=== PATIENT | male | born 1965 | race Caucasian/White ===

== ENCOUNTER 2020-06-15 10:44 | Emergency (ER) | payer OTHER ==
[~2020-06-15] VITALS: Ht 175.3 cm; Wt 158.8 kg
[2020-06-15] MEDS ORDERED: LOSARTAN POTAS100 M1 PO (11:09)
[2020-06-15] MEDS ORDERED: HYDCHL25 PO (11:09)
[2020-06-15] MEDS ORDERED: METF500C PO (11:10)
[2020-06-15] MEDS ORDERED: ONE DAILY MUL400 MCG PO (11:14)
[2020-06-15] MEDS ORDERED: GLIP5 PO (11:14)
[2020-06-15] MEDS ORDERED: ASCO500 PO (11:15)
[2020-06-15] MEDS ORDERED: Vitamin D2000 UNIT (11:15)
[2020-06-15] MEDS ORDERED: L-Lysine500 M1 PO (11:16)
[2020-06-15] MEDS ORDERED: ASPIR 8181 M1 PO (11:16)
[2020-06-15] MEDS ORDERED: FISH OIL 1,2001 EAC4 PO (11:17)
[2020-06-15] MEDS ORDERED: SYMBICORT 160-4.6 GM (11:18)
[2020-06-15] MEDS ORDERED: Loratadine10 MG PO (11:18)
== END 2020-06-15 12:04 | disposition home or self-care (01) ==
LOC: ER 10:44
DX: I83.891 Varicose veins of right lower extremity with other complications (principal); Z79.84 Long term (current) use of oral hypoglycemic drugs; Z79.82 Long term (current) use of aspirin; Z79.899 Other long term (current) drug therapy
CPT/HCPCS: 99282

== ENCOUNTER → 2021-05-04 | Outpatient (CLI) | payer OTHER ==
[~2021-05-04] MED LIST: ASCO500 PO; ASPIR 8181 M1 PO; FISH OIL 1,2001 EAC4 PO; GLIP5 PO; HYDCHL25 PO; L-Lysine500 M1 PO; LOSARTAN POTAS100 M1 PO; Loratadine10 MG PO; METF500C PO; ONE DAILY MUL400 MCG PO; SYMBICORT 160-4.6 GM; Vitamin D2000 UNIT
== END | disposition home or self-care (01) ==
LOC: LAB SHORT 11:20
DX: E11.21 Type 2 diabetes mellitus with diabetic nephropathy (principal)
CPT/HCPCS: 82043

== ENCOUNTER → 2021-09-29 | Outpatient (CLI) | payer OTHER | LOC: LAB SHORT 15:50 | DX: E11.21 Type 2 diabetes mellitus with diabetic nephropathy (principal) | CPT/HCPCS: 82043 ==

== ENCOUNTER 2022-01-29 02:14 | Inpatient (IN) | payer OTHER ==
[~2022-01-29] VITALS: Ht 172.7 cm; Wt 166.0 kg
[~2022-01-29 02:14] MED LIST changes: -Vitamin D2000 UNIT; +Vitamin D2000 UNIT PO
[2022-01-29 02:43] LABS: BASOPHILS ABSOLUTE AUTO 0.02 K/mm3 (0.00-0.23); BASOPHILS PERCENT AUTO 0 % (0-2); EOSINOPHILS ABSOLUTE AUTO 0.07 K/mm3 (0.00-0.68); EOSINOPHILS PERCENT AUTO 1 % (0-6); Hematocrit 42.7 % (37.0-53.0); Hemoglobin 14.7 g/dL (13.5-17.5); IMMATURE GRAN ABSOLUTE AUTO 0.02 K/mm3 (0.00-0.10); IMMATURE GRAN PERCENT AUTO 0 % (0-1); LYMPHOCYTES ABSOLUTE AUTO 1.08 K/mm3 (0.84-5.20); LYMPHOCYTES PERCENT AUTO 18 % (21-46); MONOCYTES ABSOLUTE AUTO 0.76 K/mm3 (0.16-1.47); MONOCYTES PERCENT AUTO 12 % (4-13); Mean Corpuscular HGB 31.5 pg (26.0-34.0); Mean Corpuscular HGB Conc 34.4 g/dL (31.5-36.5); Mean Corpuscular Volume 92 fL (80-100); Mean Platelet Volume 10.8 fL (9.1-12.4); NEUTROPHILS PERCENT AUTO 68 % (41-73); Platelet Count 205 K/mm3 (150-400); RDW Coefficient Variation 12.3 % (11.7-14.2); RDW Standard Deviation 41.3 fL (35.1-46.3); Red Blood Cell Count 4.66 M/mm3 (4.30-5.90); White Blood Cell Count 6.15 K/mm3 (4.00-11.30)
[2022-01-29 03:01] LABS: Alanine Aminotransfer (ALT/SGP 73 U/L (12-78); Albumin, Blood 3.5 g/dL (3.4-5.0); Alk Phos 50 U/L (50-136); Anion Gap 10 mmol/L (6-16); Aspartate Aminotrans (AST/SGOT 46 U/L (12-37); Bilirubin, Total 0.9 mg/dL (0.1-1.0); Blood Urea Nitrogen 12 mg/dL (8-24); Bun/Creatinine Ratio 12.6 (12.0-20.0); CO2, Blood 29 mmol/L (21-32); Calcium, Blood 8.3 mg/dL (8.5-10.1); Chloride, Blood 96 mmol/L (98-108); Creatinine, Blood 0.96 mg/dL (0.60-1.20); Globulin, Blood 3.5 g/dL (2.2-4.0); Glomerular Filtration Rate >60 (60-); Glucose, Blood 243 mg/dL (70-99); Potassium, Blood 3.3 mmol/L (3.5-5.5); Sodium, Blood 135 mmol/L (136-145)
[2022-01-29 06:16] LABS: Magnesium, Blood 1.9 mg/dL (1.6-2.4)
[2022-01-29 10:55] LABS: Influenza A, PCR NEGATIVE (NEGATIVE); Influenza B, PCR NEGATIVE (NEGATIVE); Resp Syncytial Virus, PCR NEGATIVE (NEGATIVE); SARS-Cov-2 (COVID-19) PCR, MMC NEGATIVE (NEGATIVE)
--- NOTE | 2022-01-29 11:45 | NUR ---
PICTURES TAKEN BLE. LEFT WITH SM OPENING LATERAL AND ANTERIOR POSSIBLY DUE TO EDEMA DRAINAGE. CLEANED, BACITRACIN( PATIENT STS HAS USED BEFORE), NONADHERING DRESSING, KERLIX, COBAN AND TUBEX GAUZE.TOLERATED WELL
[2022-01-29 11:47] LABS: Creatine Kinase MB 4.1 ng/mL (0.0-3.6); Creatine Kinase MB Index 0.2 (0.0-4.0)
--- NOTE | 2022-01-29 13:35 | NUR ---
ADVISED ; PATIENT WOULD LIKE DIABETIC LOZENGE AND BLD SUGAR WAS 327 FOR LUNCH. PATIENT NORMALLY CONTROLS WITH P.O. MEDS, IS ON STEROIDS NOW AND ONLY SHORT ACTING INSULIN. MD TO LOOK AT CHART.
--- NOTE | 2022-01-29 17:12 | NUR ---
ALERT. ORIENTED. IV PULLED, NEW IV PLACED AND WRAPPED. DID HAVE SOME COUGHING ON INITIAL ADMIT, BUT NOT SO MUCH IN AFTERNOON. HEALTHY APPETITE. AMBULATORY WITH STEADY GAIT TO BATHROOM. TELE ON. ON R.A. UNLABORED RESPIRATIONS. WCTM
[2022-01-29 20:11] LABS: Creatine Kinase MB 2.9 ng/mL (0.0-3.6); Creatine Kinase MB Index 0.2 (0.0-4.0)
--- NOTE | 2022-01-29 21:54 | NUR ---
HS CBG WAS 345 AND PT HAD BEEN RUNNING [phone]. NO HS INSULIN COVERAGE RX'D AND LONG ACTING INSULIN NOT TO BEGIN UNTIL THE MORNING. MADE AWARE W/10 UNITS GLARGINE X1 RX'D AND RECIEVED TONIGHT. WCTM AND REEVALUATE FOR EFFECT PRN.
--- NOTE | 2022-01-30 00:05 | NUR ---
CASH MANAGEMENT COORDINATOR ALERTED RN THAT PT WAS NOW AFIB (PREVIOUSLY S.TACH) W/HR UP TO 150'S, NOW SUSTAINING 130'S AT REST. HE APPEARS DIAPHORETIC AND REPORTS FEELING "TIRED" BUT DENIES ALL OTHER S/S CARDIAC DISTRESS. BP REMAINS ELEVATED (150/110) THOUGH PT HAS TRENDED SBP 140'S-150'S/DBP LOW 100'S. HE WAS AFIB W/RVR IN ER AND HAD RECIEVED CARDIZEM BUT PT DOESN'T APPEAR TO HAVE A HX OF AFIB. MADE AWARE AND PT WAS COMMENCED ON METOPROLOL 25MG PO Q8H. MED RECIEVED, AWAITING EFFECT. WCTM CLOSELY AND ALERT MD OF CHANGES/WORSENING.
--- NOTE | 2022-01-30 00:58 | NUR ---
MADE AWARE THAT HR SUSTAINS>130'S IN AFIB AFTER COMMENCING PO LOPRESSOR. NEW ORDER RECIEVED FOR LOPRESSOR 5MG IV NOW W/OK TO REPEAT X1 IN 1HR IF HR SUSTAINS>110 BPM. CEPACOL RX'D WELL FOR PT C/O THROAT IRRITATION AND POST NASAL DRIP.
--- NOTE | 2022-01-30 02:45 | NUR ---
HR SUSTAINING >110 BPM AND PT REMAINS AFIB. PT ASYMPTOMATIC OF CARDIAC DISTRESS AND NO LONGER REPORTS FEELLING TIRED OR DIAPHORETIC. PER PREVIOUS ORDER, ADDITIONAL DOSE OF LOPRESSOR 5MG IVX1 RX'D NOW.
--- NOTE | 2022-01-30 02:57 | NUR ---
CEPACOL NO LONGER AVAILABLE FROM PHARMACY BUT PT REPORTS RELIEF FROM TESSALON PERLS SO MED WAS DC'D.
--- NOTE | 2022-01-30 04:12 | NUR ---
2ND DOSE IV METOPROLOL RECIEVED PER EMAR (LATER THAN PLANNED D/T RN AWAITING MED FROM PHARMACY) AND INDUSTRIAL PIPEFITTER JOURNEYMAN ALERTED RN HE'S NOW CONVERTED TO NSR AT 68 BPM AT THIS TIME. PT CONT'S ASYMPTOMATIC OF CARDIAC DISTRESS AND IS SLEEPING AT PRESENT.
[2022-01-30 05:07] LABS: Hematocrit 43.3 % (37.0-53.0); Hemoglobin 14.6 g/dL (13.5-17.5); Mean Corpuscular HGB 31.6 pg (26.0-34.0); Mean Corpuscular HGB Conc 33.7 g/dL (31.5-36.5); Mean Corpuscular Volume 94 fL (80-100); Mean Platelet Volume 10.8 fL (9.1-12.4); Platelet Count 220 K/mm3 (150-400); RDW Coefficient Variation 12.3 % (11.7-14.2); RDW Standard Deviation 42.6 fL (35.1-46.3); Red Blood Cell Count 4.62 M/mm3 (4.30-5.90); White Blood Cell Count 7.19 K/mm3 (4.00-11.30)
[2022-01-30 05:29] LABS: Alanine Aminotransfer (ALT/SGP 75 U/L (12-78); Albumin, Blood 3.5 g/dL (3.4-5.0); Albumin/Globulin Ratio 0.9 (0.8-1.8); Alk Phos 51 U/L (50-136); Anion Gap 8 mmol/L (6-16); Aspartate Aminotrans (AST/SGOT 47 U/L (12-37); Bilirubin, Total 0.9 mg/dL (0.1-1.0); Blood Urea Nitrogen 18 mg/dL (8-24); Bun/Creatinine Ratio 18.7 (12.0-20.0); CO2, Blood 29 mmol/L (21-32); Calcium, Blood 8.7 mg/dL (8.5-10.1); Chloride, Blood 96 mmol/L (98-108); Creatinine, Blood 0.96 mg/dL (0.60-1.20); Globulin, Blood 3.8 g/dL (2.2-4.0); Glomerular Filtration Rate >60 (60-); Glucose, Blood 335 mg/dL (70-99); Phosphorus, Blood 4.6 mg/dL (2.5-4.9); Potassium, Blood 3.8 mmol/L (3.5-5.5); Sodium, Blood 133 mmol/L (136-145); Total Protein, Blood 7.3 g/dL (6.4-8.2)
[2022-01-30 05:33] LABS: BAND PERCENT MAN 14 % (0-8); BASOPHILS PERCENT MAN 0 % (0-2); EOSINOPHILS PERCENT MAN 0 % (0-6); LYMPHOCYTES ABSOLUTE MAN 0.57 K/mm3 (0.84-5.20); LYMPHOCYTES PERCENT MAN 8 % (21-46); MONOCYTES ABSOLUTE MAN 0.35 K/mm3 (0.16-1.47); MONOCYTES PERCENT MAN 5 % (4-13); MYELOCYTE ABSOLUTE MAN 0.07 K/mm3 (0.00-0.00); MYELOCYTE PERCENT MAN 1 % (0-0); NEUTROPHILS ABSOLUTE MAN 6.11 K/mm3 (1.96-9.15); PLASMA CELL ABSOLUTE MAN 0.07 K/mm3 (0.00-0.00); PLASMA CELLS PERCENT MAN 1 % (0-0); SEG NEUTROPHILS PERCENT MAN 71 % (41-73); TOTAL CELLS COUNTED 100
--- NOTE | 2022-01-30 05:47 | NUR ---
SUMMARY: A/OX4, CALLS APPROPRIATELY TO SPECIFY NEEDS AND IS SBA OOB. HE WAS UP TO TOILET TO VOID AND REPOSITIONS SELF IN BED. PT SLEEPS W/HOB ELEVATED FOR TO ASSIST W/NASAL DRIP, COUGH AND BREATHING. TESSALON PERLS RECIEVED FOR GOOD AFFECT. IV STEROIDS PROVIDED PER EMAR AND BX TX'S RECIEVED T/O NOCTE PER RT. RX'D 10UNITS GLARGINE AT HS FOR CBG 345. AND PT BEGAN SHIFT S.TACH AT 100'S BPM BUT CONVERTED TO AFIB W/HR SUSTAINING 130'S BPM. HE APPEARED DIAPHORETIC AND REPORTED FEELING TIRED BUT EXPRESSED NO OTHER S/S CARDIAC DISTRESS. PT WAS COMMENCED ON PO LOPRESSOR Q8H W/1ST DOSE RECIEVED TONIGHT AND REQUIRED X2 DOSES OF LOPRESSOR 5MG IV PUSH T/O NOCTE BEFORE EVENTUALLY CONVERTING BACK TO NSR W/HR 60'S-80'S. NO ACUTE CHANGEDS, VSS/AFEBRILE. WCTM/REPORT TO DAY RN.
--- NOTE | 2022-01-30 17:55 | NUR ---
SHIFT SUMMARY PT HAS BEEN UP AT THE EDGE OF THE BED MOST OF THE DAY AND HAS BEEN DOING DEEP BREATHING EXCERCISES TO ENCOURAGE COUGHING. HIS SPUTUM IS LIGHT YELLOW AND MUCH EASIER TO BRING UP PER PT. HIS LUNGS ARE STILL COARSE IN THE BASES AND DIMINISHED. HE IS EAGER TO GO HOME AND STATES THAT HE NEEDS TO BE HOME TOMORROW FOR AN "APPOINTMENT." WILL CONTINUE TO MONITOR
[2022-01-31 05:52] LABS: Albumin, Blood 3.1 g/dL (3.4-5.0); Anion Gap 6 mmol/L (6-16); Blood Urea Nitrogen 25 mg/dL (8-24); Bun/Creatinine Ratio 27.7 (12.0-20.0); CO2, Blood 30 mmol/L (21-32); Calcium, Blood 8.5 mg/dL (8.5-10.1); Chloride, Blood 96 mmol/L (98-108); Glomerular Filtration Rate >60 (60-); Glucose, Blood 339 mg/dL (70-99); Phosphorus, Blood 4.3 mg/dL (2.5-4.9); Potassium, Blood 3.8 mmol/L (3.5-5.5); Sodium, Blood 132 mmol/L (136-145)
--- NOTE | 2022-01-31 06:38 | NUR ---
SHIFT SUMMARY PATIENT BLOOD GLUCOSE 302 AT HS, LONG ACTING INSULIN GIVEN PER MAR. PATIENT ABLE TO SLEEP THROUGHOUT THE NIGHT UNINTERRUPTED. NO CHANGES IN CONDITION NOTED.
--- NOTE | 2022-02-01 04:58 | NUR ---
SHIFT SUMMARY: PATIENT REMAINS WITH TIGHT AIRWAYS INS/EXP WHEEZE AND COUGH. SCHEUDULED RT TREATMENTS HELPFUL. SAT > 94% ON RA. COUGHT TREATED PER EMAR. TELE = NSR/ST WHEN AMBULATING/COUGHING. VENOUS STASIS NOTED TO BLE. LLE WRAPPED, CDI.
[2022-02-01 10:08] LABS: Albumin, Blood 3.4 g/dL (3.4-5.0); Anion Gap 8 mmol/L (6-16); Blood Urea Nitrogen 26 mg/dL (8-24); Bun/Creatinine Ratio 29.7 (12.0-20.0); CO2, Blood 28 mmol/L (21-32); Calcium, Blood 9.1 mg/dL (8.5-10.1); Chloride, Blood 95 mmol/L (98-108); Creatinine, Blood 0.87 mg/dL (0.60-1.20); Glomerular Filtration Rate >60 (60-); Glucose, Blood 398 mg/dL (70-99); Magnesium, Blood 2.1 mg/dL (1.6-2.4); Sodium, Blood 131 mmol/L (136-145)
--- NOTE | 2022-02-01 18:36 | NUR ---
SHIFT SUMMARY PATIENT ALERT AND ORIENTED THROUGHOUT SHIFT. INDEPENDENT IN ROOM AND TO BATHROOM. TOLERATING ADA DIET AND LIQUIDS. SALINE LOCKED. BLOOD GLUCOSE HIGH IN 300 RANGE, COVERED PER EMAR. LONG ACTING INCREASED THIS SHIFT. TELE CONVERTING BACK AND FORTH FROM NSR TO AFIB, DILTIAZEM STARTED. WILL CONTINUE TO MONITOR. LS TIGHT WITH INS AND EXP WHEEZES, ROUTINE BREATHING TREATMENTS. MEPILEX PLACED TO SACRUM PREVENT BREAKDOWN. WILL REPORT TO FILLING OPERATOR RN.
--- NOTE | 2022-02-02 02:09 | NUR ---
PT BEGAN SHIFT IN AFIB/AFLUTTER AT 120'S-150'S BPM. SCHEDULED PO CARDIZEM RECIEVED AT 2054 AND PT CONVERTED TO NSR AT 80'S BPM AT 2156. HE'S REMAINED ASYMPTOMATIC OF CARDIAC DISTRESS. AT 2 HE FLIPPED BACK TO AFIB AT 120'S BPM BUT HAD RECENTLY RECIVED SCHEDULED PO LOPRESSOR AT 2346 AND AFIB ONLY LASTED APPROX 10 MINS BEFORE CONVERTING BACK TO NSR. RUG DRYING MACHINE OPERATOR HAS REPORTED HE'S BEEN SUSTAININING NSR MOST OF NOCTE SINCE BUT HAS VERY SHORT INTERVALS OF AFIB (SECONDS TO A FEW MINS) THEN FLIPPING BACK TO NSR. PT IS SLEEPING W/O S/S DISTRESS AND ACID PURIFIER PLANS TO ALERT STAFF IF FREQUENCY OR DURATION OF AFIB INCREASES OR SUSTAINS.
--- NOTE | 2022-02-02 05:23 | NUR ---
SUMMARY: PT A/OX4, CALLS APPROPRIATELY TO SPECIFY NEEDS AND IS PLEASANT AND COOPERATIVE W/CARE. HE CONT'S TO HAVE INS/EXP WHEEZES AND SOB W/EXERTION BUT TOLERATES RA AND RECOVERS AT REST. RT PROVIDED BX TX'S AND IV STEROIDS RECIEVED PER EMAR. DEIRDRE MILLER RECIEVED FOR EFFECTIVE COUGH SUPRESSION. HE REAMINS ON TELEMETRY AND CONT'S TO FLIP IN/OUT OF NSR AND AFIB/AFLUTTER. HR RANGES FROM 80'S-90'S WHEN IN NSR BUT SUSTAINS 120'S-150'S WHEN AFIB/AFLUTTER. PT IS ASYMPTOMATIC OF CARDIAC DISTRESS AND SCHEDULED CARDIZEM AND METOPROLOL WERE RECIEVED FOR POSITIVE EFFECT OF RATE CONTROL. CBG'S ARE STILL ELEVATED W/INSULIN PROVIDED PER EMAR. MEPILEX INTACT TO COCCYX FOR SBD PREVENTION. NO ACUTE CHANGES, VSS/AFEBRILE. WCTM AND REPORT TO DAY RN.
--- NOTE | 2022-02-02 07:30 | NUR ---
ASSUMED CARE: PT SITTING UPRIGHT AT EDGE OF BED. NSR ON TELE. NO ACUTE NEEDS AT THIS TIME.
--- NOTE | 2022-02-02 08:15 | NUR ---
REVIEWED PEDIGREE RESEARCHER'S ASSESSMENT DOCUMENTATION AND AGREE
--- NOTE | 2022-02-02 08:29 | NUR ---
ASSUMED CARE: PT IS A&OX4, ABLE TO VERBALIZE NEEDS APPROPRITATELY. RHYTHM, NSR AT 80S AND PT WAS AWAKE AND SITTING UP IN BED AT BESIDE REPORT. NO ACUTE NEEDS AT THIS TIME.
--- NOTE | 2022-02-02 08:30 | NUR ---
DR BROWN ROUNDED ON PT AND STATES SHE IS GOING TO CHANGE HIM TO LONG ACTING CARDIZEM. MADE DR AWARE THAT SHORT ACTING WAS GIVEN THIS AM SO STATES TO GIVE LONG ACTING THIS AFTERNOON. SEE FURTHER ORDERS AND CHANGES TO EMAR PER DR BROWN
--- NOTE | 2022-02-02 11:54 | NUR ---
WOUND CARE DONE TO LEFT LOWER EXTREMITY/LEFT FLANK/SACRUM. AREAS WERE CLEANSED WITH WOUND CLEANSER AND DRESSINGS REPLACED. PLACED NONADHERENT PAD AND KRILEX TO WOUND, SECURED WITH NETTING. LEFT FLANK BANDAID REPLACED. MEPILEX SACRUM DRESSING REPLACED.
--- NOTE | 2022-02-02 17:38 | NUR ---
SHIFT SUMMARY: PT IS A&OX4. CALLS APPROPRIATELY WHEN IN NEED. PT CONTINUES TO HAVE SLIGHT SOB W/ EXERTION, BUT IS ABLE TO RECOVER WITH REST ON ROOM AIR. PT HAS SUSTAINED NSR DURING SHIFT WITH RATE REMAINING IN 70S. PT DENIES ANY CHEST PAIN/TIGHTNESS/DISCOMFORT. DRESSINGS TO COCCYX, LEFT LOWER EXTREMITY, AND LEFT RIB AREA HAVE BEEN CHANGED AND REMAIN CLEANT/INTACT/DRY. NO ACUTE NEEDS/DISTRESS AT THIS TIME.
--- NOTE | 2022-02-03 04:25 | NUR ---
SUMMARY: PT A/OX4, INDEPENDENT IN ROOM AND CALLS APPROPRIATELY TO SPECIFY NEEDS. HE CONT'S TO HAVE INSP WHEEZES W/MILD SOB UPON EXERTION BUT RECOVERS AT REST. RT IS PROVIDING BX TX'S AND IV SOLUMEDROL BEING RECIEVED PER EMAR. SCHEDULED TESSALON PERLS SEEM EFFECTIVE AT MANAGING COUGH. HE'S BEEN NSR AT 70'S-80'S BPM T/O NOCTE W/RATE AND RHYTHM BETTER CONTROLLED BY PO METOPROLOL AND CARDIZEM. MEPILEX IS IN PLACE TO COCCYX FOR SBD PREVENTION AND LLE DX REMAINS C/D/I. NO ACUTE CHANGES, VSS/AFEBRILE. WCTM AND REPORT TO DAY RN.
[2022-02-03 05:24] LABS: BASOPHILS ABSOLUTE AUTO 0.02 K/mm3 (0.00-0.23); BASOPHILS PERCENT AUTO 0 % (0-2); EOSINOPHILS PERCENT AUTO 0 % (0-6); Hematocrit 41.1 % (37.0-53.0); IMMATURE GRAN ABSOLUTE AUTO 0.24 K/mm3 (0.00-0.10); IMMATURE GRAN PERCENT AUTO 2 % (0-1); LYMPHOCYTES ABSOLUTE AUTO 1.15 K/mm3 (0.84-5.20); LYMPHOCYTES PERCENT AUTO 11 % (21-46); MONOCYTES ABSOLUTE AUTO 0.64 K/mm3 (0.16-1.47); MONOCYTES PERCENT AUTO 6 % (4-13); Mean Corpuscular HGB 31.5 pg (26.0-34.0); Mean Corpuscular HGB Conc 34.1 g/dL (31.5-36.5); Mean Corpuscular Volume 93 fL (80-100); Mean Platelet Volume 10.5 fL (9.1-12.4); NEUTROPHILS ABSOLUTE AUTO 8.88 K/mm3 (1.96-9.15); NEUTROPHILS PERCENT AUTO 81 % (41-73); Platelet Count 312 K/mm3 (150-400); RDW Standard Deviation 41.1 fL (35.1-46.3); Red Blood Cell Count 4.44 M/mm3 (4.30-5.90); White Blood Cell Count 10.93 K/mm3 (4.00-11.30)
[2022-02-03 05:50] LABS: Albumin, Blood 3.2 g/dL (3.4-5.0); Anion Gap 11 mmol/L (6-16); Blood Urea Nitrogen 33 mg/dL (8-24); Bun/Creatinine Ratio 36.5 (12.0-20.0); CO2, Blood 27 mmol/L (21-32); Calcium, Blood 9.2 mg/dL (8.5-10.1); Chloride, Blood 93 mmol/L (98-108); Creatinine, Blood 0.91 mg/dL (0.60-1.20); Glomerular Filtration Rate >60 (60-); Glucose, Blood 390 mg/dL (70-99); Magnesium, Blood 2.3 mg/dL (1.6-2.4); Phosphorus, Blood 4.9 mg/dL (2.5-4.9); Potassium, Blood 4.1 mmol/L (3.5-5.5); Sodium, Blood 131 mmol/L (136-145)
--- NOTE | 2022-02-03 07:20 | NUR ---
ASSUMED CARE: PT RESTING IN BED. DRAPERY MAKER AT BEDSIDE AT THIS TIME. NSR ON TELE IN 70S. NO ACUTE NEEDS OR CONCERNS.
--- NOTE | 2022-02-03 07:24 | NUR ---
ASSUMED CARE: PT IS A&OX4, ABLE TO CALL APPROPRIATELY FOR NEEDS. PT WAS RECEIVING BREATHING TX W/ RT ON BEDSIDE REPORT. PT REMAINS NSR ON TELE NO ACUTE DISTRESS/NEEDS AT THIS TIME.
--- NOTE | 2022-02-03 09:19 | NUR ---
REVIEWED FOREST ECOLOGIST'S HEAD TO TOE ASSESSMENT AND AGREE
--- NOTE | 2022-02-03 11:30 | NUR ---
PT WOUND DRESSINGS TO ANTERIOR LLE CHANGED, NONADHERENT/TUBE APPLIED. COCCYX MEPILEX APPLIED TO SACRUM FOR PRESSURE RELIEF. BANDNAID TO LEFT RIB AREA REPLACED. PT STATES NO ACUTE NEEDS/DISTRESS AT THIS TIME, CALL LIGHT WITHIN REACH.
--- NOTE | 2022-02-03 17:57 | NUR ---
PT IS A&OX4 AND CALLS APPROPRIATELY FOR NEEDS, IS INDEPENDENT IN ROOM. PT CONTINUES TO HAVE SOB W/ EXERTION, RECOVERS WELL AT ROOM AIR W/ REST. SINUS RHYTHM AT 80S PER TELE MONITOR THROUGHOUT SHIFT. PT HAS SWITCHED FROM IV STEROID THERAPY TO PO, TOLERATING WELL. CBGS HAVE BEEN IN MID 300 MORNING AND AFTERNOON, ONCE PT BEGAN GLIPIZIDE PER DEC, CBG IMPROVED TO MID 200S IN THE EVENING. DRESSINGS TO LLE AND SACRUM REPLACED, C/D/I. NO ACUTE NEEDS/DISTRESS AT THIS TIME.
--- NOTE | 2022-02-04 05:21 | NUR ---
SHIFT SUMMARY: NO ACUTE CHANGES. PATIENT HAS PRODUCTIVE COUGH, SMALL AMT. OF THICK YELLOW SPUTUM OBSERVED. MAINTAINING SATS 91-94% ON RA.
[2022-02-04] MEDS ORDERED: ELIQUIS5 M2 PO (15:14)
[2022-02-04] MEDS ORDERED: Tessalon200 MG PO (15:15)
[2022-02-04] MEDS ORDERED: Furosemide20 MG PO (15:16)
[2022-02-04] MEDS ORDERED: DILT180 PO (15:16)
[2022-02-04] MEDS ORDERED: Lopressor 25 mg25 MG PO (15:17)
[2022-02-04] MEDS ORDERED: Prednisone10 MG PO (15:18)
[2022-02-04] MEDS ORDERED: Ventolin/Prove6.7 GM INH (15:20)
--- NOTE | 2022-02-04 18:34 | NUR ---
SHIFT/ DISCHARGE SUMMARY PT AXO, PLEASANT AND COOPERATIVE WITH CARE. PT LEFT ROOM AT 1813 VIA WHEELCHAIR AT 1813 WITH AQUATICS ASSISTANT DEPARTMENT HEAD ESCORT WITH PT'S BROTHER PRESENT. PT DISCHARGED TO HOME. PT EDUCATED ON ALL DISCHARGE INSTRUCTIONS, ALL QUESTIONS ANSWERED. PT AGREES TO FOLLOW UP WITH PCP AND CARDIOLOGY ORDERED. PT ALSO AGREES TO TAKE MEDICATIONS PRESCRIBED. IV DC'D AND BELONGINGS RETURNED.
== END 2022-02-04 18:19 | disposition home or self-care (01) | DRG 189 ==
LOC: ER 02:14 → MEDS 02:15 → EDBEDREQ 07:40 → MEDS 07:45
PROVIDERS: Emergency Medicine; Internal Medicine; ADMIT Internal Medicine
DX: J96.01 Acute respiratory failure with hypoxia (principal); J44.0 Chronic obstructive pulmonary disease with (acute) lower respiratory infection; Z68.43 Body mass index [BMI] 50.0-59.9, adult; E87.1 Hypo-osmolality and hyponatremia; I48.92 Unspecified atrial flutter; J20.9 Acute bronchitis, unspecified; I10 Essential (primary) hypertension; Z20.822 Contact with and (suspected) exposure to COVID-19; I48.91 Unspecified atrial fibrillation; I87.2 Venous insufficiency (chronic) (peripheral); E87.6 Hypokalemia; E66.01 Morbid (severe) obesity due to excess calories; E11.65 Type 2 diabetes mellitus with hyperglycemia; Z88.0 Allergy status to penicillin; Z79.82 Long term (current) use of aspirin; Z79.84 Long term (current) use of oral hypoglycemic drugs; Z79.899 Other long term (current) drug therapy
CPT/HCPCS: 0241U; 36415; 71045; 80053; 80069; 82550; 82553; 82947; 83036; 83735; 83880; 84100; 84484; 85025; 87070; 87147; 87205; 93005; 93010; 93306; 94640; 94664; 94760; 96365; 96366; 96372; 96374; 96375; 96376; 99285-25; A9270; G0378; J0456; J1650; J1815; J2930; J3480; J7050; J7512